=== PATIENT | female | born 1985 | race Hispanic/Latino ===

== ENCOUNTER 2018-02-18 18:39 | Emergency (ER) | payer OTHER ==
[2018-02-18] MEDS ORDERED: ACETAMINOPHEN 325 MG TAB ONE (18:50)
== END 2018-02-18 19:52 | disposition home or self-care (01) ==
LOC: EEVIPCON 18:39 → EDH 18:39
DX: S93.402A Sprain of unspecified ligament of left ankle, initial encounter (principal); W18.39XA Other fall on same level, initial encounter; Y93.02 Activity, running; Y92.89 Other specified places as the place of occurrence of the external cause; Y99.8 Other external cause status
CPT/HCPCS: 73610